=== PATIENT | male | born 1940 | race Caucasian/White ===

== ENCOUNTER 2016-09-27 08:25 | Day surgery (SDC) | payer MEDICARE ==
[~2016-09-27 08:25] MED LIST: Lactated Ringers 1,000 ML IV SCH
--- NOTE | 2016-09-27 09:20 | PCM.PREANE ---
Preanesthetic Assessment - Anesthesia/Transfusion/Family Hx Anesthesia History: Prior Anesthesia Without Reaction Family History of Anesthesia Reaction: No Transfusion History: No Prior Transfusion(s) - Review of Systems General: No Symptoms Pulmonary: No Symptoms Cardiovascular: No Symptoms Gastrointestinal: No Symptoms Neurological: No Symptoms Other: Reports: Throat Pain (hoarseness and L maxillary pain) - Physical Assessment NPO Status Date: 09/26/16 O2 Sat by Pulse Oximetry: 98 Respiratory Rate: 16 Vital Signs: Last Vital Signs Temp 36.5 C 09/27/16 09:13 Pulse 52 L 09/27/16 09:13 Resp 16 09/27/16 09:13 BP 136/69 09/27/16 09:13 Pulse Ox 98 09/27/16 09:13 Height: 1.75 m Weight: 93.44 kg ASA Class: 2 Mental Status: Alert & Oriented x3 Airway Class: Mallampati = 2 Dentition: Reports: Bridge (central maxillary) Lungs: Clear to Auscultation, Normal Respiratory Effort Cardiovascular: Regular Rate, Regular Rhythm - Allergies Allergies/Adverse Reactions: Allergies Allergy/AdvReac Type Severity Reaction Status Date / Time No Known Allergies Allergy Verified 09/22/16 13:46 - Acknowledgements Anesthesia Type Planned: MAC Pt an Appropriate Candidate for the Planned Anesthesia: Yes Alternatives and Risks of Anesthesia Discussed w Pt/Guardian: Yes Pt/Guardian Understands and Agrees with Anesthesia Plan: Yes PreAnesthesia Questionnaire HEENT History: Reports: Other (See Below) Other HEENT History: wears glasses Cardiovascular History: Reports: Other (See Below) Other Cardiovascular History: states was told he had a "mild NV" Gastrointestinal History: Reports: GERD, Hiatal Hernia Genitourinary History: Reports: BPH Oncologic (Cancer) History: Reports: Squamous Cell Carcinoma Dermatologic History: Reports: Other (See Below) Other Dermatologic History: skin lesions, seborrheic keratoses - Past Surgical History Head Surgeries/Procedures: Reports: None GI Surgical History: Reports: Colonoscopy, Hernia, Inguinal, Other (See Below) Other GI Surgeries/Procedures: repair of Paraesophageal hiatal hernia Dermatological Surgical History: Reports: Skin Biopsy - SUBSTANCE USE Smoking Status *Q: Former Smoker Tobacco Use Within Last Twelve Months: Cigarettes Second Hand Smoke Exposure: No Recreational Drug Use History: No - HOME MEDS Home Medications: Home Meds Finasteride 5 mg PO DAILY 08/31/16 [History] Omeprazole 20 mg PO DAILY 08/31/16 [History] - CURRENT (IN HOUSE) MEDS Current Meds: Current Medications Lactated Ringer's (Ringers, Lactated) 1,000 mls @ 125 mls/hr IV ASDIRECTED UZIEL Lactated Ringer's (Ringers, Lactated) 1,000 mls @ 125 mls/hr IV ASDIRECTED [facility] Last Admin: 09/27/16 09:11 Dose: 125 mls/hr Discontinued Medications Lactated Ringer's (Ringers, Lactated) 1,000 mls @ 125 mls/hr IV ASDIRECTED UZIEL
[2016-09-27] MEDS ORDERED: Propofol 200 MG/20 ML SDV ONE ×2 (10:26→10:59)
[2016-09-27] MEDS ORDERED: fentaNYL 100 MCG/2 ML SDV ONE (10:26)
[2016-09-27] MEDS ORDERED: Lidocaine 2% 5 ML SDV ONE ×2 (10:26→11:00)
[2016-09-27] MEDS ORDERED: Midazolam 1 MG/ML 2 ML SDV ONE (10:59)
--- NOTE | 2016-09-27 11:41 | PCM.OPNOTE ---
- General Post-Op/Procedure Note Date of Surgery/Procedure: 09/27/16 Operative Procedure(s): Esophagogastroduodenoscopy with duodenal, gastric and esophageal biopsies. Colonoscopy. Pre Op Diagnosis: Progressive heartburn with hiatal hernia. Personal history of colon polyps. Post-Op Diagnosis: Duodenitis, gastritis and esophagitis. No evidence of colonic neoplasia. Anesthesia Technique: MAC (ASA II) Primary Surgeon: Gil Patton Condition: Good Free Text/Narrative:: Dictation [id number] CPT CODE [id number]
[2016-09-27] MEDS ORDERED: Lactated Ringers 1,000 ML IV SCH (11:45)
--- NOTE | 2016-09-27 13:50 | PCM.POSTAN ---
POST ANESTHESIA ASSESSMENT - MENTAL STATUS Mental Status: Alert, Oriented - RESPIRATORY Respiratory Status: Respiratory Rate WNL, Airway Patent, O2 Saturation Stable - CARDIOVASCULAR CV Status: Pulse Rate WNL, Blood Pressure Stable - GASTROINTESTINAL GI Status: No Symptoms - POST OP HYDRATION Hydration Status: Adequate & Stable
--- NOTE | 2016-09-27 13:50 | PCM48HPAN ---
Post Anesthesia Note - EVALUATION WITHIN 48HRS OF ANESTHETIC Vital Signs in Normal Range: Yes Patient Participated in Evaluation: Yes Respiratory Function Stable: Yes Airway Patent: Yes Cardiovascular Function Stable: Yes Hydration Status Stable: Yes Pain Control Satisfactory: Yes Nausea and Vomiting Control Satisfactory: Yes Mental Status Recovered: Yes
[2016-09-27 14:04] VITALS: BP 122/78
--- NOTE | 2016-09-27 15:02 | OR ---
SURGEON: Gil Patton M.D. DATE OF PROCEDURE: 09/27/2016 OPERATION PERFORMED: Esophagogastroduodenoscopy with biopsy. ANESTHESIA: MAC. ASA CLASSIFICATION: II. PREOPERATIVE DIAGNOSES: Progressive heartburn with history of hiatal hernia. POSTOPERATIVE DIAGNOSES: Duodenitis, gastritis, and esophagitis. DESCRIPTION OF PROCEDURE: The patient was taken to the endoscopy room and positioned on the endoscopy table in the supine position. Time-out was called for appropriate identification of the patient and procedure. Monitored anesthesia care was provided. The bite-block was placed between the patient's teeth. The gastroscope was inserted into the mouth and advanced without difficulty through the esophagus and stomach, into the duodenum, where examination was carried out in a retrograde fashion. The proximal duodenum does show acute inflammatory changes. No ulcers were seen. Duodenal biopsies were obtained. The gastroscope was withdrawn to the stomach, which does show mild gastritis. Again biopsies were obtained. The gastroscope was retroflexed to visualize the proximal stomach greater and lesser curvatures. The patient does have a hiatal hernia. No proximal ulcers or tumors were noted. The gastroscope was then straightened and withdrawn aspirating the stomach. The esophagus does demonstrate [id number] esophagitis. Separate esophageal biopsies were obtained. No tumors were noted and no ulcers were seen. The esophagus does demonstrate good contractility. The vocal cords were briefly visualized as the scope was withdrawn and noted to move symmetrically. The gastroscope was then removed with the patient having tolerated the procedure well. Following colonoscopy, he was taken to recovery room in stable condition. LINDA / JEANINE /[id number]
--- NOTE | 2016-09-27 15:08 | OR ---
SURGEON: Gil Patton M.D. DATE OF PROCEDURE: 09/27/2016 OPERATION PERFORMED: Colonoscopy. ANESTHESIA: MAC. ASA CLASSIFICATION: II. PREOPERATIVE DIAGNOSIS: Personal history of colon polyps. POSTOPERATIVE DIAGNOSIS: No evidence of neoplasia. DESCRIPTION OF PROCEDURE: With the patient having completed esophagogastroduodenoscopy, he was now positioned in the left lateral decubitus position. The colonoscope was inserted into the rectum and advanced without difficulty to the cecum, where the colonoscope was retroflexed to visualize the ascending colon from below. The colonoscope was then straightened and slowly withdrawn. The cecum, ascending colon, hepatic flexure, transverse colon, splenic flexure, descending colon, sigmoid colon, and rectum were very well visualized. No tumors, polyps, diverticula, or angiodysplastic changes were noted. There was no evidence of inflammatory bowel disease. The colonoscope was withdrawn to the rectum and retroflexed to visualize the anal orifice from above. No tumors, polyps, or acute hemorrhoidal changes were noted. The colonoscope was then straightened, the rectum aspirated, and the colonoscope removed. The patient tolerated the procedure well and was taken to recovery room in stable condition. LINDA SOLORZANO /[id number]
== END 2016-09-27 12:35 | disposition home or self-care (01) ==
LOC: MW.SDS 08:25
PROVIDERS: ATTEND Surgery
DX: Z12.11 Encounter for screening for malignant neoplasm of colon (principal); K29.50 Unspecified chronic gastritis without bleeding; K29.80 Duodenitis without bleeding; Z86.010 Personal history of colon polyps; K44.9 Diaphragmatic hernia without obstruction or gangrene; N40.1 Benign prostatic hyperplasia with lower urinary tract symptoms; R33.8 Other retention of urine; K21.9 Gastro-esophageal reflux disease without esophagitis; E78.00 Pure hypercholesterolemia, unspecified; I10 Essential (primary) hypertension; Z79.899 Other long term (current) drug therapy; Z98.890 Other specified postprocedural states; Z87.891 Personal history of nicotine dependence
CPT/HCPCS: 43239; 88305; 88312; G0105; J2250; J3010; J7120; 00740; J2704